=== PATIENT | male | born 1970 | race Caucasian/White ===

== ENCOUNTER 2017-12-17 22:32 | Emergency (ER) | payer OTHER ==
[~2017-12-17] VITALS: Ht 177.8 cm; Wt 131.5 kg
[~2017-12-17 22:32] MED LIST: ALLOPURINOL 30300 M2; BACTRIM DS TAB1 EACH; DIPHENHIST50 MG PO; EPIPEN 2-P0.3 MG/0.3 IM; FLOVENT DISKU250 MCG; HYDROXYZINE HCL25 M1; LANSOPRAZOLE30 MG; LISINOPRIL-HCT1 EAC2; MONTELUKAST SOD10 MG; PREDNISONE50 MG PO; PROAIR HFA8.5 GM; SERTRALINE HCL100 MG; TOPROL XL100 MG
[2017-12-17] MEDS ORDERED: PREDNISONE 20 M20 M1 PO (23:26)
[2017-12-18 00:06] VITALS: BP 115/78
== END 2017-12-18 00:07 | disposition home or self-care (01) ==
LOC: M.ERS 22:32
DX: J45.901 Unspecified asthma with (acute) exacerbation (principal); I10 Essential (primary) hypertension; K21.9 Gastro-esophageal reflux disease without esophagitis; Z88.8 Allergy status to other drugs, medicaments and biological substances